=== PATIENT | male | born 1995 | race Caucasian/White ===

== ENCOUNTER 2016-09-20 11:36 | Emergency (ER) | payer OTHER ==
--- NOTE | 2016-09-20 13:20 | EDPHY ---
H & P Time Seen by Provider: 09/20/16 12:55 HPI/ROS: CHIEF COMPLAINT: Back spasms, back pain HISTORY OF PRESENT ILLNESS: Patient is a 21-year-old male who presents emergency department with right lower back pain and spasm. Patient states he was long boarding with his dog. His dog started to become "squirrly" 30 jumped off his board and tried to run. He felt a twinge in his right lower back. He had mild back discomfort. Tuesday through Tuesday he was doing okay until helped a friend move. When he picked a heavy box he felt right low back spasm. This radiated to his right buttock. He has no weakness or numbness. No hip pain. No incontinence of urine or stool. No fevers or chills. No midline back pain. REVIEW OF SYSTEMS: My complete review of systems is negative except as mentioned in the HPI. Past Medical/Surgical History: Includes Legg calves Perthes disease, femur fracture Smoking Status: Never smoked Physical Exam: Vitals noted GENERAL: Well-appearing, in no acute distress, alert. Lying on his stomach. HEENT: Eyes normal to inspection, normal pharynx, no signs of dehydration. NECK: No thyromegaly, no lymphadenopathy, supple. RESPIRATORY: Clear to auscultation bilaterally, no rales, rhonchi or wheezing. CVS: Regular rate and rhythm, no rubs, murmurs, or gallops. ABDOMEN: Soft, nontender, nondistended, no organomegaly. BACK: Normal to inspection, no CVA tenderness. Patient has no spinal tenderness palpation. There is no step-off or deformity. Patient has moderate discomfort with palpation of the right lower back. There is no tenderness palpation over the patient's buttock or hip. He has full range of motion of his right hip. SKIN: Normal color, no rash, warm, dry. No pallor. EXTREMITIES: No pedal edema, no joint swelling. NEURO/PSYCH: Alert and oriented x3, normal mood and affect, normal motor sensory exam. Constitutional: Initial Vital Signs Temperature (C) 37.3 C 09/20/16 11:39 Heart Rate 84 09/20/16 11:39 Respiratory Rate 16 09/20/16 11:39 Blood Pressure 122/82 H 09/20/16 11:39 O2 Sat (%) 95 09/20/16 11:39 O2 Delivery Mode Room Air Allergies/Adverse Reactions: No Known Allergies Allergy (Unverified 09/20/16 11:39) Home Medications: Medication Instructions Recorded Cyclobenzaprine [Flexeril] 10 mg PO TID #15 tab 09/20/16 Hydrocodone/APAP 5/325 [[place] 1 - 2 tab PO Q4 #13 tab 09/20/16 5/325 (RX)] Medical Decision Making ED Course/Re-evaluation: In the emergency department I discussed possible etiologies with the patient. I answered all his questions. I do not feel the patient needs imaging at this time. I explained this to the patient. Patient will be given Flexeril and pain medication. He will continue to take ibuprofen. He will follow up with Orthopedics. Patient was given warnings prior to leaving. He will return with worsening symptoms. Differential Diagnosis: My differential includes but is not limited to musculoskeletal strain, disc herniation, cauda equina syndrome, hip fracture, hardware dysfunction, psoas injury, zoster Departure - Departure Disposition: Home, Routine, Self-Care Clinical Impression: Low back pain Qualifiers: Chronicity: acute Back pain laterality: right Sciatica presence: without sciatica Qualified Code(s): M54.5 - Low back pain Condition: Good Instructions: Lower Back Exercises (ED), Acute Low Back Pain (ED) Additional Instructions: Use your medications as directed. Return with increasing pain, weakness, numbness, incontinence of urine or stool, or any other concerns. Referrals: Jerome Segal MD [Medical Doctor] - 5-7 days, if not improved Prescriptions: Cyclobenzaprine [Flexeril] 10 mg PO TID #15 tab Hydrocodone/APAP 5/325 [[place] 5/325 (RX)] 1 - 2 tab PO Q4 #13 tab
[2016-09-20 13:51] VITALS: TEMP 99
[2016-09-20 13:56] VITALS: BP 117/91; PULSE 78; RESP 14; O2SAT 98
== END 2016-09-20 13:52 | disposition home or self-care (01) ==
DX: M54.5 Low back pain (principal)

== ENCOUNTER 2017-02-02 11:08 | Emergency (ER) | payer OTHER ==
[2017-02-02] MEDS ORDERED: LET GEL TOPICAL 1 EA SYR TP ONE (11:29)
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
[2017-02-02 12:18] VITALS: RESP 16; TEMP 98.8; O2SAT 98
[2017-02-02 13:01] VITALS: BP 110/82; PULSE 80
== END 2017-02-02 12:30 | disposition home or self-care (01) ==
LOC: CED 11:08
DX: S06.0X0A Concussion without loss of consciousness, initial encounter (principal); S93.431A Sprain of tibiofibular ligament of right ankle, initial encounter; S40.811A Abrasion of right upper arm, initial encounter; S50.811A Abrasion of right forearm, initial encounter; V86.99XA Unspecified occupant of other special all-terrain or other off-road motor vehicle injured in nontraffic accident, initial encounter; Y92.410 Unspecified street and highway as the place of occurrence of the external cause
CPT/HCPCS: 73610-PO